=== PATIENT | female | born 1935 | race Caucasian/White ===

== ENCOUNTER 2018-04-11 20:37 | Emergency (ER) | payer OTHER, MEDICARE ==
--- NOTE | 2018-04-11 20:56 | CPEKG ---
Heart Rate: 144 RR Interval: 417 P-R Interval: 138 QRSD Interval: 102 QT Interval: 388 QTC Interval: 601 P Hague: 0 QRS Hague: 27 EKG Severity - ABNORMAL ECG - EKG Impression: WANDERING PACEMAKER EKG Impression: RUN OF VENTRICULAR PREMATURE COMPLEXES EKG Impression: ABERRANT COMPLEX, POSSIBLY SUPRAVENTRICULAR EKG Impression: LEFT VENTRICULAR HYPERTROPHY EKG Impression: PROLONGED QT INTERVAL Electronically Signed By: Johnathon Delgado 11-Apr-2018 22:16:54
--- NOTE | 2018-04-11 21:03 | EDPHY ---
H & P Time Seen by Provider: 04/11/18 20:55 HPI/ROS: Chief complaint. Nausea vomiting HPI. 82-year-old female presents with complaint of vomiting for 4 days. No diarrhea. No abdominal pain. Unable to keep her meds down as well as fluids. Denies chest pain shortness of breath or fever. No urinary symptoms. No travel or exposure to Infectious Disease. No bad food. Slightly weak. ROS Constitutional. Weakness Eyes. no problems with vision ENT. no sore throat, no nasal drainage Cardiovascular. no chest pain Respiratory. no shortness of breath, no cough Abdominal. No abdominal pain but vomiting. No diarrhea . no problems urinating MS. no calf pain/swelling, no neck/back pain, no joint pain Skin. no rash Lymph. no swollen glands Neuro. no headache, no dizziness, no difficulty walking or with speech Past Medical/Surgical History: Past medical history significant diabetes, breast cancer, asthma, hypertension Social History: , nonsmoker, no alcohol Smoking Status: Never smoked Physical Exam: General Appearance: Alert well-developed female mild distress vital signs significant for blood pressure 204/104. 91% pulse ox on room air Eyes: Pupils equal and round no pallor or injection. ENT, Mouth: Mucous membranes are dry. Respiratory: There are no retractions, lungs are clear to auscultation. Cardiovascular: Regular rate and rhythm. Gastrointestinal: Abdomen is soft and nontender, no masses, bowel sounds normal. Neurological: Awake and alert, sensory and motor exams grossly normal. Skin: Warm and dry, no rashes. Musculoskeletal: Neck is supple nontender. Extremities symmetrical, full range of motion. Psychiatric: Patient is oriented X 3, there is no agitation. Constitutional: Initial Vital Signs Temperature (C) 37.4 C 04/11/18 20:43 Heart Rate 79 04/11/18 20:43 Respiratory Rate 18 04/11/18 20:43 Blood Pressure 204/104 H 04/11/18 20:43 O2 Sat (%) 91 L 04/11/18 20:43 O2 Delivery Mode Nasal Cannula O2 (L/minute) 2 Allergies/Adverse Reactions: codeine Allergy (Mild, Verified 07/22/16 06:38) GI upset Home Medications: Medication Instructions Recorded Aspirin [Aspirin 81mg (*)] 81 mg PO DAILY 10/15/13 Atorvastatin Calcium [Lipitor 40 40 mg PO DAILY 10/15/13 mg (*)] BENAZEPRIL HCL [Lotensin] 40 mg PO DAILY 10/15/13 Budesonide/Formoterol 160/4.5 2 puffs IH BID 10/15/13 [Symbicort 160-4.5 Mcg Inh (*)] Montelukast Sodium [Singulair 10 10 mg PO DAILY@1800 10/15/13 mg (*)] Omeprazole [Prilosec 40 mg] 40 mg PO DAILY 10/15/13 amLODIPine BESYLATE [Norvasc 5 mg 5 mg PO DAILY 10/15/13 (*)] Cholecalciferol Vit D3 [Vitamin D3 2,000 units PO DAILY 07/16/16 (*)] Docusate Sodium [Colace 100 MG (*)] 100 mg PO BID 07/16/16 Fluticasone Nasal [Flonase Nasal 2 sprays NASAL DAILY 07/16/16 [place]] Insulin Glargine [Lantus 100 20 units SC HS 07/16/16 UNITS/ML (*)] Polyethylene Glycol 3350 [Miralax 17 gm PO DAILY PRN 07/16/16 17 gm (*)] Bisacodyl [Bisacodyl (*)] 5 mg PO PRN PRN 07/22/16 Cetirizine [ZyrTEC 10 mg (*)] 10 mg PO DAILY PRN 07/22/16 Ondansetron Odt [Zofran Odt 4 mg 4 mg PO Q8 PRN 07/22/16 (*)] Potassium Cl [Klor-Con 10 meq (RX)] 10 meq PO DAILY 07/22/16 Simethicone [GAS-X] 125 mg PO BID PRN 07/22/16 Solifenacin Succinate [Vesicare 5 10 mg PO DAILY8 07/22/16 MG (*)] Metoprolol Succinate Xr [Toprol Xl 12.5 mg PO DAILY #30 tab.sr 07/23/16 25 mg (*)] Ondansetron Odt [Zofran Odt] 4 mg PO Q4PRN PRN #4 tab 04/11/18 Medical Decision Making - Diagnostics EKG Interpretation: EKG interpreted by me shows normal sinus rhythm with normal interval and axis. QRS is otherwise normal there is no significant ST elevation or depression. No arrhythmia. The rate is about 75 Procedures: IV normal saline. Zofran IV ED Course/Re-evaluation: Re-evaluation at 10:50 p.m.. Patient is taking oral fluids. No further nausea vomiting. No abdominal pain. She has no complaints. She feels well a go home. The patient and I discussed laboratory evaluation, treatment plan including criteria for return and importance of follow-up and further evaluation. She expresses understanding and agreement Differential Diagnosis: I considered dehydration, electrolyte abnormality, acute coronary syndrome. - Data Points Laboratory Results: Laboratory Results 04/11/18 21:40 04/11/18 21:40 04/11/18 04/11/18 21:40 21:40 WBC 2.37 10^3/uL L 10^3/uL (3.80-9.50) RBC 3.89 10^6/uL L 10^6/uL (4.18-5.33) Hgb 11.9 g/dL L g/dL (12.6-16.3) Hct 34.7 % L % (38.0-47.0) MCV 89.2 fL fL (81.5-99.8) MCH 30.6 pg pg (27.9-34.1) MCHC 34.3 g/dL g/dL (32.4-36.7) RDW 14.6 % % (11.5-15.2) Plt Count 173 10^3/uL 10^3/uL (150-400) MPV 9.4 fL fL (8.7-11.7) Neut % (Auto) 65.9 % % (39.3-74.2) Lymph % (Auto) 28.7 % % (15.0-45.0) [place] % (Auto) 3.8 % L % (4.5-13.0) Eos % (Auto) 0.4 % L % (0.6-7.6) Baso % (Auto) 0.8 % % (0.3-1.7) Nucleat RBC Rel Count 0.0 % % (0.0-0.2) Absolute Neuts (auto) 1.56 10^3/uL L 10^3/uL (1.70-6.50) Absolute Lymphs (auto) 0.68 10^3/uL L 10^3/uL (1.00-3.00) Absolute Monos (auto) 0.09 10^3/uL L 10^3/uL (0.30-0.80) Absolute Eos (auto) 0.01 10^3/uL L 10^3/uL (0.03-0.40) Absolute Basos (auto) 0.02 10^3/uL 10^3/uL (0.02-0.10) Absolute Nucleated RBC 0.00 10^3/uL 10^3/uL (0-0.01) Immature Gran % 0.4 % % (0.0-1.1) Immature Gran # 0.01 10^3/uL 10^3/uL (0.00-0.10) Sodium 132 mEq/L L mEq/L (135-145) Potassium 3.7 mEq/L mEq/L (3.3-5.0) Chloride 97 mEq/L mEq/L (97-110) Carbon Dioxide 29 mEq/l mEq/l (22-31) Anion Gap 6 mEq/L L mEq/L (8-16) BUN 19 mg/dL mg/dL (7-23) Creatinine 0.7 mg/dL mg/dL (0.6-1.0) Estimated GFR > 60 Glucose 220 mg/dL H mg/dL (70-100) Calcium 8.5 mg/dL mg/dL (8.5-10.4) Medications Given: Discontinued Medications Sodium Chloride (Ns) 1,000 mls @ 0 mls/hr IV EDNOW ONE; Wide Open PRN Reason: Protocol Stop: 04/11/18 21:52 Last Admin: 04/11/18 22:00 Dose: 1,000 mls Ondansetron HCl (Zofran) 4 mg IVP EDNOW ONE Stop: 04/11/18 21:52 Last Admin: 04/11/18 22:01 Dose: 4 mg Departure - Departure Disposition: Home, Routine, Self-Care Clinical Impression: Vomiting Qualifiers: Vomiting type: unspecified Vomiting Intractability: non-intractable Nausea presence: with nausea Qualified Code(s): R11.2 - Nausea with vomiting, unspecified Condition: Good Instructions: Acute Nausea and Vomiting (ED) Additional Instructions: Frequent, small sips fluids well nauseated. Gradual diet advancement. Zofran every 4 hr as needed for nausea and vomiting Return for worsening symptoms. Recheck in 1-2 days for continuing symptoms Referrals: Patient,NotPresent [Unknown] - As per Instructions Prescriptions: Ondansetron Odt [Zofran Odt] 4 mg PO Q4PRN PRN #4 tab PRN Reason: Nausea/Vomiting, Use 1st
[2018-04-11 21:46] LABS: PLATELET COUNT 173 10^3/uL (150-400)
[2018-04-11] MEDS ORDERED: NS 1,000 ML IV ONE (21:51)
[2018-04-11] MEDS ORDERED: ONDANSETRON 4 MG/2 ML VIAL IVP ONE (21:51)
[2018-04-11] MEDS ORDERED: ONDANSETRON 4MG PREPACK#2 BTL TAKEHOME ONE (22:56)
[2018-04-11 23:40] VITALS: BP 180/85
== END 2018-04-11 23:54 | disposition home or self-care (01) ==
LOC: EDUNIT#
DX: R11.2 Nausea with vomiting, unspecified (principal); E86.9 Volume depletion, unspecified; J45.909 Unspecified asthma, uncomplicated; I10 Essential (primary) hypertension; E11.9 Type 2 diabetes mellitus without complications; Z79.4 Long term (current) use of insulin; Z79.82 Long term (current) use of aspirin; Z85.3 Personal history of malignant neoplasm of breast
CPT/HCPCS: 93005; 96361; 96374; 99284; J2405

== ENCOUNTER 2018-06-13 18:42 | Emergency (ER) | payer OTHER, MEDICARE ==
[2018-06-13] MEDS ORDERED: NS 1,000 ML IV ONE (19:16)
[2018-06-13] MEDS ORDERED: amLODIPine BESYLATE 5 MG TAB PO ONE (19:16)
--- NOTE | 2018-06-13 19:17 | EDPHY ---
HPI/HX/ROS/PE/MDM Narrative: CHIEF COMPLAINT: Vomiting, nausea HPI: The patient is an 83 y/o female with a history of diabetes arriving via EMS complaining of nausea and vomiting onset today. She says, "I haven't eaten all day and I had a cup of juice, but threw that up." She reports she missed one cycle of medications today because of her nausea. She denies chest pain, headache, abdominal pain, diarrhea, fever. REVIEW OF SYSTEMS: A comprehensive 10 system review of systems is otherwise negative aside from elements mentioned in the history of present illness. PMH: Diabetes, hypertension, heart failure, constipation, GERD, hyperlipidemia, asthma, osteoporosis SOCIAL HISTORY: [facility]. Full Code. PHYSICAL EXAM: General:Patient is alert, in no acute distress. BP 205/101 ENT:Eyes are normal to inspection. ENT inspection normal. Neck: Normal inspection. Full range of motion. Respiratory:No respiratory distress. Breath sounds normal bilaterally. Cardiovascular: Regular rate and rhythm. Strong peripheral pulses. Normal cap refill. Abdomen:The abdomen is nontender to palpation. There are no peritoneal signs. Back: Normal to inspection. No tenderness to palpation. Skin: Normal color. No rash. Warm and dry. Extremities: Normal appearance. Full range of motion. Neuro: Oriented x3. Normal motor function. Normal sensory function. (Ventura Sanchez) ED Course: This is a well-appearing elderly 83 y/o female who presents complaining of nausea and one episode of vomiting earlier today. She missed one cycle of medications due to this. She is currently hypertensive around 200/100, but denies headache and has a normal neurovascular exam. Plan for IV, labs, blood pressure treatment. 10mg PO amlodipine ordered. 2119: Patient re-evaluated. Completely asymptomatic and quite friendly. BP trended downward briefly but now still elevated. Hydralazine 50mg PO ordered. Patient care signed out to Dr. Davison at shift change pending UA results and BP improvement. (Ventura Sanchez) MDM: 2906: I was asked to re-evaluate the patient she is resting comfortably. Has no complaints. Blood pressure improved here down into the 170 systolic. She does have underlying dementia. However is pretty lucid this evening. Denies any focal complaints she does live at a care facility and is agreeable on being discharged back there. She denies any focal complaints at this time. Urinalysis pending. Since her blood pressures improved, also will rule out UTI. 1204: Patient resting comfortably no complaints. Urinalysis reviewed unremarkable for infection. Blood pressure improved. Patient like to go home. Return precautions discussed with her. (Misael Davison) - Data Points Laboratory Results: Laboratory Results 06/13/18 19:19 06/13/18 19:19 06/13/18 06/13/18 06/13/18 23:35 19:19 19:19 WBC 2.32 10^3/uL L 10^3/uL (3.80-9.50) RBC 4.07 10^6/uL L 10^6/uL (4.18-5.33) Hgb 12.9 g/dL g/dL (12.6-16.3) Hct 37.8 % L % (38.0-47.0) MCV 92.9 fL fL (81.5-99.8) MCH 31.7 pg pg (27.9-34.1) MCHC 34.1 g/dL g/dL (32.4-36.7) RDW 13.7 % % (11.5-15.2) Plt Count 187 10^3/uL 10^3/uL (150-400) MPV 9.8 fL fL (8.7-11.7) Neut % (Auto) 55.6 % % (39.3-74.2) Lymph % (Auto) 39.2 % % (15.0-45.0) [place] % (Auto) 3.0 % L % (4.5-13.0) Eos % (Auto) 1.3 % % (0.6-7.6) Baso % (Auto) 0.9 % % (0.3-1.7) Nucleat RBC Rel Count 0.0 % % (0.0-0.2) Absolute Neuts (auto) 1.29 10^3/uL L 10^3/uL (1.70-6.50) Absolute Lymphs (auto) 0.91 10^3/uL L 10^3/uL (1.00-3.00) Absolute Monos (auto) 0.07 10^3/uL L 10^3/uL (0.30-0.80) Absolute Eos (auto) 0.03 10^3/uL 10^3/uL (0.03-0.40) Absolute Basos (auto) 0.02 10^3/uL 10^3/uL (0.02-0.10) Absolute Nucleated RBC 0.00 10^3/uL 10^3/uL (0-0.01) Immature Gran % 0.0 % % (0.0-1.1) Immature Gran # 0.00 10^3/uL 10^3/uL (0.00-0.10) Sodium 139 mEq/L mEq/L (135-145) Potassium 3.4 mEq/L mEq/L (3.3-5.0) Chloride 100 mEq/L mEq/L (97-110) Carbon Dioxide 30 mEq/l mEq/l (22-31) Anion Gap 9 mEq/L mEq/L (8-16) BUN 16 mg/dL mg/dL (7-23) Creatinine 0.7 mg/dL mg/dL (0.6-1.0) Estimated GFR > 60 Glucose 128 mg/dL H mg/dL (70-100) Calcium 8.7 mg/dL mg/dL (8.5-10.4) Urine Color COLORLESS Urine Appearance CLEAR Urine pH 7.0 (5.0-7.5) Ur Specific [place] 1.005 (1.002-1.030) Urine Protein NEGATIVE (NEGATIVE) Urine Ketones NEGATIVE (NEGATIVE) Urine Blood NEGATIVE (NEGATIVE) Urine Nitrate NEGATIVE (NEGATIVE) Urine Bilirubin NEGATIVE (NEGATIVE) Urine Urobilinogen NEGATIVE EU EU (0.2-1.0) Ur Leukocyte Esterase NEGATIVE (NEGATIVE) Urine Glucose NEGATIVE (NEGATIVE) Medications Given: Discontinued Medications Amlodipine Besylate (Norvasc) 10 mg PO EDNOW ONE Stop: 06/13/18 19:17 Last Admin: 06/13/18 19:34 Dose: 10 mg Hydralazine HCl (Apresoline) 50 mg PO EDNOW ONE Stop: 06/13/18 21:19 Last Admin: 06/13/18 22:07 Dose: 50 mg Sodium Chloride (Ns) 1,000 mls @ 0 mls/hr IV EDNOW ONE; Wide Open PRN Reason: Protocol Stop: 06/13/18 19:17 Last Admin: 06/13/18 19:35 Dose: 1,000 mls Sodium Chloride (Ns) 500 mls @ 1,000 mls/hr IV EDNOW ONE PRN Reason: Protocol Stop: 06/13/18 22:19 Last Admin: 06/13/18 21:55 Dose: 500 mls General Time Seen by Provider: 06/13/18 18:48 Initial Vital Signs: Initial Vital Signs Temperature (C) 37 C 06/13/18 18:47 Heart Rate 76 06/13/18 18:47 Respiratory Rate 13 06/13/18 18:47 Blood Pressure 200/100 H 06/13/18 18:47 O2 Sat (%) 90 L 06/13/18 18:47 O2 Delivery Mode Nasal Cannula O2 (L/minute) 2 Allergies/Adverse Reactions: codeine Allergy (Mild, Verified 07/22/16 06:38) GI upset Home Medications: Medication Instructions Recorded Aspirin [Aspirin 81mg (*)] 81 mg PO DAILY 10/15/13 Atorvastatin Calcium [Lipitor 40 40 mg PO DAILY 10/15/13 mg (*)] BENAZEPRIL HCL [Lotensin] 40 mg PO DAILY 10/15/13 Budesonide/Formoterol 160/4.5 2 puffs IH BID 10/15/13 [Symbicort 160-4.5 Mcg Inh (*)] Montelukast Sodium [Singulair 10 10 mg PO DAILY@1800 10/15/13 mg (*)] Omeprazole [Prilosec 40 mg] 40 mg PO DAILY 10/15/13 amLODIPine BESYLATE [Norvasc 5 mg 5 mg PO DAILY 10/15/13 (*)] Cholecalciferol Vit D3 [Vitamin D3 2,000 units PO DAILY 07/16/16 (*)] Docusate Sodium [Colace 100 MG (*)] 100 mg PO BID 07/16/16 Fluticasone Nasal [Flonase Nasal 2 sprays NASAL DAILY 07/16/16 [place]] Insulin Glargine [Lantus 100 20 units SC HS 07/16/16 UNITS/ML (*)] Polyethylene Glycol 3350 [Miralax 17 gm PO DAILY PRN 07/16/16 17 gm (*)] Bisacodyl [Bisacodyl (*)] 5 mg PO PRN PRN 07/22/16 Cetirizine [ZyrTEC 10 mg (*)] 10 mg PO DAILY PRN 07/22/16 Ondansetron Odt [Zofran Odt 4 mg 4 mg PO Q8 PRN 07/22/16 (*)] Potassium Cl [Klor-Con 10 meq (RX)] 10 meq PO DAILY 07/22/16 Simethicone [GAS-X] 125 mg PO BID PRN 07/22/16 Solifenacin Succinate [Vesicare 5 10 mg PO DAILY8 07/22/16 MG (*)] Metoprolol Succinate Xr [Toprol Xl 12.5 mg PO DAILY #30 tab.sr 07/23/16 25 mg (*)] Ondansetron Odt [Zofran Odt] 4 mg PO Q4PRN PRN #4 tab 04/11/18 Departure - Departure Disposition: Home, Routine, Self-Care Clinical Impression: Hypertension Qualifiers: Hypertension type: unspecified Qualified Code(s): I10 - Essential (primary) hypertension Condition: Good Instructions: Hypertension (ED) Additional Instructions: Take all medications as directed. Follow up with your primary care provider for reevaluation of your blood pressure next week. I recommend keeping a daily log of your blood pressure with one morning and one evening measurement. Bring that chart with you to your next doctor's appointment. Referrals: Mark Marti MD [Medical Doctor] - As per Instructions Report Scribed for: Ventura Sanchez Report Scribed by: Merced Chen Date of Report: 06/13/18 Time of Report: 19:17 Physician Review and Approval Statement: Portions of this note were transcribed by an ED scribe. I personally performed the history, physical exam, and medical decision making; and confirm the accuracy of the information in the transcribed note.
[2018-06-13 19:27] LABS: PLATELET COUNT 187 10^3/uL (150-400)
[2018-06-13] MEDS ORDERED: NS 500 ML IV ONE (21:50)
[2018-06-14 00:08] VITALS: BP 170/81
== END 2018-06-14 01:18 | disposition home or self-care (01) ==
LOC: EDUNIT#
DX: I10 Essential (primary) hypertension (principal); E11.9 Type 2 diabetes mellitus without complications; K21.9 Gastro-esophageal reflux disease without esophagitis; E78.5 Hyperlipidemia, unspecified; J45.909 Unspecified asthma, uncomplicated; M81.0 Age-related osteoporosis without current pathological fracture

== ENCOUNTER → 2018-08-12 | Outpatient (CLI) | payer OTHER, MEDICARE | LOC: FIMAGING 08:17 | PROVIDERS: ATTEND Internal Medicine Gastroenterology | DX: K22.9 Disease of esophagus, unspecified (principal); K44.9 Diaphragmatic hernia without obstruction or gangrene ==